=== PATIENT | female | born 1970 | race Caucasian/White ===

== ENCOUNTER → 2017-06-11 15:51 | Outpatient (CLI) | payer SELFPAY ==
[2017-06-11 17:53] LABS: Vitamin D,25 Hydroxy 59.4 ng/mL (29.95-100.01)
[2017-06-11 17:54] LABS: Free T3 2.8 pg/mL (2.18-3.98); T4 Free Direct 1.04 ng/dL (0.76-1.46); Thyroid Stim Hormone (TSH) 2.28 uIU/mL (0.358-3.74)
[2017-06-14 11:07] LABS: Thyroid Peroxidase AB 19 IU/mL (0-34)
== END ==
PROVIDERS: Family Provider Family Medicine; PCP Family Medicine; Visit Provider Family Medicine
DX: R53.83 Other fatigue (principal); E56.9 Vitamin deficiency, unspecified
CPT/HCPCS: 36415; 82306; 84439; 84443; 84481; 86376

== ENCOUNTER → 2017-06-26 09:45 | Outpatient (CLI) | payer SELFPAY ==
[2017-07-02 11:23] LABS: HPV APTIMA, High Risk Negative (Negative)
== END ==
PROVIDERS: Family Provider Family Medicine; PCP Family Medicine; Visit Provider Obstetrics & Gynecology
DX: Z12.4 Encounter for screening for malignant neoplasm of cervix (principal)
CPT/HCPCS: 88175; G0145

== ENCOUNTER → 2017-11-16 16:13 | Outpatient (CLI) | payer SELFPAY ==
[2017-11-16 17:54] LABS: Hematocrit 34.4 % (37-47); Hemoglobin 11.2 g/dl (12.0-15.0); Mean Corp Hgb Conc 32.6 g/gl (32-36); Mean Corpuscular Hgb 25.2 pg (27.0-32.0); Mean Corpuscular Volume 77.5 fL (81-99); Mean Platelet Vol. 10.8 fl (6.2-12.0); Platelet Count 304 K/mm3 (150-450); RBC Distribution Width CV 14.5 % (11.6-14.6); Red Blood Count 4.44 M/mm3 (4.2-5.4); White Blood Count 6.4 K/mm3 (4.4-11.0)
[2017-11-16 17:57] LABS: Scan Indicated on CBC? Y/N NO
[2017-11-16 18:08] LABS: Free T3 2.5 pg/mL (2.18-3.98); Iron 38 ug/dL (50-170); Iron Binding Capacity,Total 361 ug/dL (250-450); T4 Free Direct 0.97 ng/dL (0.76-1.46); Thyroid Stim Hormone (TSH) 1.99 uIU/mL (0.358-3.74)
[2017-11-17 08:39] LABS: Vitamin D,25 Hydroxy 47.2 ng/mL (29.95-100.01)
[2017-11-20 09:05] LABS: T3 Reverse 23.1 ng/dL (9.2-24.1)
== END ==
PROVIDERS: Family Provider Family Medicine; PCP Family Medicine; Visit Provider Family Medicine
DX: R53.83 Other fatigue (principal); R63.5 Abnormal weight gain
CPT/HCPCS: 36415; 82306; 83540; 83550; 84439; 84443; 84481; 84482; 85027

== ENCOUNTER → 2017-11-25 16:38 | Outpatient (CLI) | payer SELFPAY ==
[2017-11-25 18:03] LABS: Estradiol 133.3 pg/mL
[2017-11-26 08:31] LABS: Progesterone Level 13.37 ng/mL (See Comment)
[2017-11-30 14:07] LABS: Testosterone, % Free 2.71 % (0.50-2.80); Testosterone, Free 0.24 ng/dL (0.10-0.85); Testosterone, Total 9 ng/dL (8-48)
[2017-11-30 15:19] LABS: DHEA Sulfate 110.4 ug/dL (41.2-243.7)
== END ==
PROVIDERS: Family Provider Family Medicine; PCP Family Medicine
DX: R53.83 Other fatigue (principal); R63.5 Abnormal weight gain
CPT/HCPCS: 36415; 82627; 82670; 84144; 84402; 84403; 82626

== ENCOUNTER → 2018-01-03 07:11 | Outpatient (CLI) | payer SELFPAY ==
[2018-01-03 11:08] LABS: Cholesterol 214 mg/dL (200); High Density Lipoprotein 46 mg/dL; Triglycerides 126 mg/dL; Very Low Density Lipoprotein 25 mg/dL (5-40)
== END ==
PROVIDERS: Family Provider Family Medicine; PCP Family Medicine
DX: Z13.220 Encounter for screening for lipoid disorders (principal)
CPT/HCPCS: 36415; 80061

== ENCOUNTER → 2018-02-24 11:25 | Outpatient (CLI) | payer SELFPAY ==
[2017-06-25 10:37] VITALS: BMI 26.8
[2018-02-24 14:10] LABS: Absolute Lymphocyte Count 1.43 X10^3/ul (0.83-4.51); Absolute Neutrophil Count 3.6 X10^3/uL (2.0-7.7); Basophil# 0.03 X10^3/uL; Basophil% 0.5 % (0-1); Eosinophil# 0.08 X10^3/uL; Eosinophils% 1.4 % (0-5); Hematocrit 35.8 % (37-47); Hemoglobin 11.6 g/dl (12.0-15.0); Lymphocyte # 1.43 X10^3/ul (4.0); Lymphocyte % 24.7 % (19-41); Mean Corp Hgb Conc 32.4 g/gl (32-36); Mean Corpuscular Hgb 25.1 pg (27.0-32.0); Mean Corpuscular Volume 77.3 fL (81-99); Monocyte# 0.67 X10^3/uL; Monocyte% 11.6 % (0-10); Neutrophil # 3.58 X10^3/uL (2.7-7.7); Neutrophil % 61.6 % (47-70); Platelet Count 312 K/mm3 (150-450); RBC Distribution Width CV 14.9 % (11.6-14.6); RBC Distribution Width SD 41.1 fl (35.1-43.9); Red Blood Count 4.63 M/mm3 (4.2-5.4); White Blood Count 5.8 K/mm3 (4.4-11.0)
[2018-02-24 14:15] LABS: POSITIVE COUNT NO; POSITIVE DIFFERENTIAL NO; POSITIVE MORPHOLOGY NO
[2018-02-24 14:31] LABS: Free T3 2.9 pg/mL (2.18-3.98); Iron 188 ug/dL (50-170); Iron Binding Capacity,Total 403 ug/dL (250-450); PERCENT IRON SATURATION 46.7 % (15.0-55.0); T4 Free Direct 1.04 ng/dL (0.76-1.46); Thyroid Stim Hormone (TSH) 3.44 uIU/mL (0.358-3.74)
[2018-03-02 11:13] LABS: T3 Reverse 26.9 ng/dL (9.2-24.1)
== END ==
PROVIDERS: Family Provider Family Medicine; PCP Family Medicine
DX: D50.9 Iron deficiency anemia, unspecified (principal); R53.83 Other fatigue
CPT/HCPCS: 36415; 83540; 83550; 84439; 84443; 84481; 84482; 85025

== ENCOUNTER → 2018-06-10 15:16 | Outpatient (CLI) | payer SELFPAY ==
[2017-06-25 10:37] VITALS: BMI 26.8
[2018-06-20 13:05] LABS: Alternaria alternata <0.10 kU/L (Class 0); Aspergillus fumigatus <0.10 kU/L (Class 0); Bahia Grass <0.10 kU/L (Class 0); Bermuda Grass <0.10 kU/L (Class 0); Bluegrass, Kentucky <0.10 kU/L (Class 0); Cat Hair/Dander, Standard <0.10 kU/L (Class 0); Cedar, Mountain <0.10 kU/L (Class 0); Cladosporium herbarum <0.10 kU/L (Class 0); Cockroach, American <0.10 kU/L (Class 0); D farinae Mite <0.10 kU/L (Class 0); D pteronyssinus <0.10 kU/L (Class 0); Dog Epithelia <0.10 kU/L (Class 0); Elm, American White <0.10 kU/L (Class 0); Hazelnut Tree <0.10 kU/L (Class 0); Hickory, White <0.10 kU/L (Class 0); Johnson Grass <0.10 kU/L (Class 0); Maple/Box Elder <0.10 kU/L (Class 0); Mucor racemosus <0.10 kU/L (Class 0); Mugwort <0.10 kU/L (Class 0); Mulberry, White <0.10 kU/L (Class 0); Oak, White <0.10 kU/L (Class 0); Penicillium chrysogen <0.10 kU/L (Class 0); Pigweed, Rough <0.10 kU/L (Class 0); Plantain, English <0.10 kU/L (Class 0); Ragweed, Short/Common <0.10 kU/L (Class 0); Sheep Sorrel(Dock) <0.10 kU/L (Class 0); Stemphylium herbarum <0.10 kU/L (Class 0); Sweet Gum <0.10 kU/L (Class 0); Sycamore, American <0.10 kU/L (Class 0)
[2018-06-20 14:28] LABS: Nettle <0.10 kU/L (Class 0)
== END ==
PROVIDERS: Family Provider Family Medicine; PCP Family Medicine; Referring Provider Family Medicine; Visit Provider Family Medicine
DX: R06.7 Sneezing (principal)
CPT/HCPCS: 36415; 86003

== ENCOUNTER → 2018-07-25 13:53 | Outpatient (CLI) | payer SELFPAY ==
[2018-07-20 13:57] VITALS: BMI 26.8
--- NOTE | 2018-07-25 13:56 | BI_ITS ---
MAMMOGRAPHY - BILATERAL DIAGNOSTIC REASON FOR EXAM: Female, 47 years old. History of bilateral breast cysts. PERTINENT HISTORY: Non-contributory. TECHNIQUE: Digital bilateral breast ana (3D mammographic acquisition) in the CC and MLO projections. 2-D mediolateral oblique (MLO) and craniocaudad (CC) views of both breasts were obtained. CAD: Full Field Digital Mammography with Computer Added Detection was performed. COMPARISON: No comparison mammograms available at this time. If any prior films become available, an addendum to this report can be generated. FINDINGS: Breast Composition: The breasts are heterogeneously dense, which may obscure small masses. Small nodular densities are seen in both breasts. Correlation with ultrasound is recommended. No suspicious mass lesion is seen. No cluster microcalcifications present. No other significant abnormalities are identified. BI/DIAG MAMM W/CAD, BILAT IMPRESSION: Small well-defined nodular densities are seen in both breasts. Correlation with ultrasound is recommended. ASSESSMENT CATEGORY: BIRADS Category 0: Incomplete. Need additional imaging evaluation. A letter regarding these results will be sent to the patient by the facility within 30 days. Approximately 10% of breast cancers are not detected by mammography. A normal mammogram should not delay biopsy of a clinically suspicious abnormality. Electronically Signed: Saman Peters, at 15:55 EDT , Service support ,
--- NOTE | 2018-07-25 13:56 | US_ITS ---
STUDY: ULTRASOUND BREAST - RIGHT REASON FOR EXAM: Female, 47 years old. History of bilateral breast cysts. TECHNIQUE: Axial and longitudinal images of the RIGHT breast were performed with a high resolution ultrasound transducer. COMPARISON: Comparison is made with prior mammogram done earlier today. FINDINGS: RIGHT Breast: Multiple cysts are seen. The largest cyst measures 1 cm x 0.8 cm x 0.6 cm. This is at the 7:00 position of the breast at 6 cm from the nipple. IMPRESSION: Multiple small breast cysts. ASSESSMENT CATEGORY: BIRADS Category 2: Benign. A letter regarding these results will be sent to the patient by the facility within 30 days. Electronically Signed: Saman Peters, at 15:42 EDT , Service support , STUDY: ULTRASOUND BREAST - LEFT REASON FOR EXAM: Female, 47 years old. History of breast cysts. TECHNIQUE: Axial and longitudinal images of the LEFT breast were performed with a high resolution ultrasound transducer. COMPARISON: Comparison is made with prior mammogram done earlier today. FINDINGS: LEFT Breast: Multiple cysts are seen. The largest measures 1.3 cm x 1.3 cm x 0.7 cm. This is at the 3:00 position of the breast at 3 cm some the nipple. US/Breast Complete Bilateral IMPRESSION: Multiple breast cysts. ASSESSMENT CATEGORY: BIRADS Category 2: Benign. A letter regarding these results will be sent to the patient by the facility within 30 days. Electronically Signed: Saman Peters, at 15:43 EDT , Service support ,
== END ==
PROVIDERS: Family Provider Family Medicine; PCP Family Medicine; Referring Provider Nurse Practitioner Women's Health; Visit Provider Nurse Practitioner Women's Health
DX: N63.0 Unspecified lump in unspecified breast (principal)
CPT/HCPCS: 76641; 77066

== ENCOUNTER → 2018-12-16 10:19 | Outpatient (CLI) | payer SELFPAY ==
[2018-07-20 13:57] VITALS: BMI 26.8
[2018-12-16 12:43] LABS: Absolute Lymphocyte Count 1.18 X10^3/uL (0.83-4.51); Absolute Neutrophil Count 3.7 X10^3/uL (2.0-7.7); Basophil# 0.03 X10^3/uL; Basophil% 0.5 % (0-1); Eosinophil# 0.08 X10^3/uL; Eosinophils% 1.5 % (0-5); Hemoglobin 11.4 g/dL (12.0-15.0); Lymphocyte # 1.18 X10^3/ul (4.0); Lymphocyte % 21.5 % (19-41); Mean Corp Hgb Conc 30.8 g/dL (32-36); Mean Corpuscular Volume 81.1 fL (81-99); Mean Platelet Vol. 10.7 fl (6.2-12.0); Monocyte# 0.47 X10^3/uL; Monocyte% 8.6 % (0-10); NRBC Flagged by Analyzer 0 % (0-5); Neutrophil # 3.71 X10^3/uL (2.7-7.7); Neutrophil % 67.7 % (47-70); Platelet Count 290 K/mm3 (150-450); Red Blood Count 4.56 M/mm3 (4.2-5.4); White Blood Count 5.5 K/mm3 (4.4-11.0)
[2018-12-16 13:01] LABS: Progesterone Level 2.67 ng/mL (See Comment); Vitamin D,25 Hydroxy 41.8 ng/mL (29.95-100.01)
[2018-12-16 13:14] LABS: Free T3 2.7 pg/mL (2.18-3.98); Iron 36 ug/dL (50-170); Iron Binding Capacity,Total 372 ug/dL (250-450); T4 Free Direct 0.94 ng/dL (0.76-1.46); Thyroid Stim Hormone (TSH) 2.49 uIU/mL (0.358-3.74)
[2018-12-21 13:06] LABS: T3 Reverse 22.6 ng/dL (9.2-24.1)
== END ==
PROVIDERS: Family Provider Family Medicine; PCP Family Medicine
DX: D64.9 Anemia, unspecified (principal); R53.83 Other fatigue; E34.9 Endocrine disorder, unspecified; Z13.820 Encounter for screening for osteoporosis
CPT/HCPCS: 36415; 82306; 83540; 83550; 84144; 84439; 84443; 84481; 84482; 85025

== ENCOUNTER → 2019-09-04 15:15 | Outpatient (CLI) | payer SELFPAY ==
[2018-07-20 13:57] VITALS: BMI 26.8
[2019-08-25 13:46] VITALS: BMI 26.8
--- NOTE | 2019-09-04 15:16 | BI_ITS ---
MAMMOGRAPHY - BILATERAL SCREENING 3-D TOMOSYNTHESIS REASON FOR EXAM: Female, 48 years old. Routine screening PERTINENT HISTORY: NO FAM HX -- GAINED WEIGHT SINCE LAST YEAR -- HX CYSTS. TECHNIQUE: 2-D mammograms and 3-D Tomosynthesis of the breast (s) were performed. CAD was performed. COMPARISON: 07/25/2018 FINDINGS: The breast composition is heterogeneously dense that can obscure small breast masses. Scattered benign calcifications are seen. No dense spiculated masses or suspicious microcalcifications are identified. No architectural distortion is identified. There is no skin thickening or retraction. Stable well-defined nodules in both breasts, previous ultrasounds showing to be simple cysts. No new suspicious findings There has been no significant change since the prior study. BI/SCREEN MAMM (CAD) W/JS BILAT IMPRESSION: No mammographic signs of malignancy. Routine yearly mammograms recommended. ASSESSMENT CATEGORY: BIRADS Category 2: Benign. A letter regarding these results will be sent to the patient by the facility within 30 days. FOLLOW UP RECOMMENDATION: Yearly follow up mammogram recommended. (A) Approximately 10% of breast cancers are not detected by mammography. A normal mammogram should not delay biopsy of a clinically suspicious abnormality. Electronically Signed: Yobany Cervantes MD at 8:12 EDT , Service support ,
== END ==
PROVIDERS: PCP Family Medicine; Referring Provider Obstetrics & Gynecology; Visit Provider Obstetrics & Gynecology
DX: Z12.31 Encounter for screening mammogram for malignant neoplasm of breast (principal)
CPT/HCPCS: 77063; 77067

== ENCOUNTER → 2020-01-23 08:59 | Outpatient (CLI) | payer SELFPAY ==
[2019-08-25 13:46] VITALS: BMI 26.8
[2020-01-23 09:18] LABS: Absolute Lymphocyte Count 1.21 X10^3/uL (0.83-4.51); Absolute Neutrophil Count 3.5 X10^3/uL (2.0-7.7); Basophil# 0.02 X10^3/uL; Basophil% 0.4 % (0-1); Eosinophils% 1.9 % (0-5); Hematocrit 36.8 % (37-47); Hemoglobin 11.6 g/dL (12.0-15.0); Lymphocyte # 1.21 X10^3/ul (4.0); Lymphocyte % 22.9 % (19-41); Mean Corp Hgb Conc 31.5 g/dL (32-36); Mean Corpuscular Hgb 25.6 pg (27.0-32.0); Mean Corpuscular Volume 81.2 fL (81-99); Mean Platelet Vol. 9.6 fl (6.2-12.0); Monocyte# 0.45 X10^3/uL; Monocyte% 8.5 % (0-10); NRBC Flagged by Analyzer 0 % (0-5); Neutrophil # 3.49 X10^3/uL (2.7-7.7); Neutrophil % 66.1 % (47-70); Platelet Count 309 K/mm3 (150-450); RBC Distribution Width CV 13.8 % (11.6-14.6); RBC Distribution Width SD 39.8 fl (35.1-43.9); Red Blood Count 4.53 M/mm3 (4.2-5.4); White Blood Count 5.3 K/mm3 (4.4-11.0)
[2020-01-23 09:42] LABS: ALB/GLOB Ratio 0.9 RATIO (0.9-2.4); AST(SGOT) 17 U/L (15-37); Alanine Aminotransfer ALT/SGPT 27 U/L (13-56); Albumin, Serum 3.5 g/dL (3.2-5.0); Alkaline Phosphatase 80 U/L (45-117); Anion Gap 5 (5-15); BUN 10 mg/dL (7-18); BUN/Creat Ratio 10.8 RATIO (10-20); Calcium,Total 9.2 mg/dL (8.5-10.1); Chloride 106 mmol/L (98-107); Creatinine, Serum 0.92 mg/dL (0.55-1.02); EST Glomerular Filtration Rate 69 mL/min (>60); Est Glom Filt Rate - Afr Amer 83 mL/min (>60); Glucose 97 mg/dL (74-106); Potassium 3.6 mmol/L (3.5-5.1); Protein, Total 7.5 g/dL (6.4-8.2); Sodium Level 139 mmol/L (136-145); Thyroid Stim Hormone (TSH) 2.86 uIU/mL (0.358-3.74)
[2020-01-23 10:05] LABS: Vitamin D,25 Hydroxy 39.4 ng/mL
== END ==
PROVIDERS: PCP Family Medicine; Referring Provider Obstetrics & Gynecology; Visit Provider Obstetrics & Gynecology
DX: Z13.21 Encounter for screening for nutritional disorder (principal); Z01.419 Encounter for gynecological examination (general) (routine) without abnormal findings; Z13.29 Encounter for screening for other suspected endocrine disorder
CPT/HCPCS: 36415; 80053; 82306; 84443; 85025

== ENCOUNTER → 2020-05-08 08:45 | Outpatient (CLI) | payer SELFPAY ==
[2020-05-01 08:58] VITALS: BMI 25.4
--- NOTE | 2020-05-08 09:04 | BI_ITS ---
MAMMOGRAPHY - BILATERAL DIAGNOSTIC REASON FOR EXAM: Female, 49 years old. Right breast lump. Bruising. PERTINENT HISTORY: Non-contributory. TECHNIQUE: Digital bilateral breast ana (3D mammographic acquisition) in the CC and MLO projections. 2-D mediolateral oblique (MLO) and craniocaudad (CC) views of both breasts were obtained. CAD: Full Field Digital Mammography with Computer Added Detection was performed. COMPARISON: Comparison is made with prior study dated 09/04/2019 and 07/25/2018. FINDINGS: Breast Composition: The breasts are heterogeneously dense, which may obscure small masses. There is a 2.1 cm x 1.8 cm well-defined nodular density in the deep slightly lateral aspect of the left breast. A similar appearing nodule is seen in the same region measuring 1.4 cm x 1.3 cm. Correlation with ultrasound is recommended. No other significant abnormalities are identified. There has been no significant change since the prior study. BI/DIAG MAMM W/CAD, BILAT IMPRESSION: 2 well-defined nodules are seen in the upper outer quadrant of the left breast as described. Correlation with ultrasound is recommended. With the patient''s history of lump and bruising in the right breast, ultrasound of the right breast is recommended as well. ASSESSMENT CATEGORY: BIRADS Category 0: Incomplete. Need additional imaging evaluation. A letter regarding these results will be sent to the patient by the facility within 30 days. Approximately 10% of breast cancers are not detected by mammography. A normal mammogram should not delay biopsy of a clinically suspicious abnormality. Electronically Signed: Saman Peters MD at 12:02 EST , Service support ,
[2020-05-08 09:05] LABS: Absolute Lymphocyte Count 1.05 X10^3/uL (0.83-4.51); Absolute Neutrophil Count 4.3 X10^3/uL (2.0-7.7); Basophil# 0.03 X10^3/uL; Basophil% 0.5 % (0-1); Eosinophil# 0.05 X10^3/uL; Eosinophils% 0.9 % (0-5); Hematocrit 36.5 % (37-47); Hemoglobin 11.8 g/dL (12.0-15.0); Lymphocyte # 1.05 X10^3/ul (4.0); Lymphocyte % 17.9 % (19-41); Mean Corp Hgb Conc 32.3 g/dL (32-36); Mean Corpuscular Volume 80.4 fL (81-99); Monocyte# 0.47 X10^3/uL; NRBC Flagged by Analyzer 0 % (0-5); Neutrophil # 4.25 X10^3/uL (2.7-7.7); Neutrophil % 72.4 % (47-70); Platelet Count 239 K/mm3 (150-450); RBC Distribution Width CV 14.2 % (11.6-14.6); RBC Distribution Width SD 41.1 fl (35.1-43.9); Red Blood Count 4.54 M/mm3 (4.2-5.4); White Blood Count 5.9 K/mm3 (4.4-11.0)
[2020-05-08 09:39] LABS: Free T3 2.7 pg/mL (2.18-3.98); T4 Free Direct 1.08 ng/dL (0.76-1.46); Thyroid Stim Hormone (TSH) 2.29 uIU/mL (0.358-3.74)
--- NOTE | 2020-05-08 10:11 | US_ITS ---
STUDY: ULTRASOUND BREAST - RIGHT REASON FOR EXAM: Female, 49 years old. Abnormal screening mammogram. TECHNIQUE: Axial and longitudinal images of the RIGHT breast were performed with a high resolution ultrasound transducer. # OF IMAGES: 59 COMPARISON: Comparison is made with prior mammogram done earlier in day. FINDINGS: RIGHT Breast: 3 cysts are seen at the 2 o''clock and 3 o''clock position of the left breast. The larger measures 1.5 cm x 2.1 cm x 1 cm. This corresponds to the mammographic findings. IMPRESSION: 3 cysts are seen in the upper outer quadrant of the right breast. ASSESSMENT CATEGORY: BIRADS Category 2: Benign. A letter regarding these results will be sent to the patient by the facility within 30 days. Electronically Signed: Saman Peters MD at 12:03 EST , Service support , STUDY: ULTRASOUND BREAST - LEFT REASON FOR EXAM: Female, 49 years old. Palpable lump in the right breast. TECHNIQUE: Axial and longitudinal images of the LEFT breast were performed with a high resolution ultrasound transducer. # OF IMAGES: 59 COMPARISON: Comparison is made with prior mammogram done earlier today. FINDINGS: LEFT Breast: The area of the bruising was examined by ultrasound in the upper outer quadrant. No sonographic abnormality is seen.. US/Breast Limited Unilateral IMPRESSION: No sonographic abnormality is seen. ASSESSMENT CATEGORY: BIRADS Category 1: Negative. A letter regarding these results will be sent to the patient by the facility within 30 days. Electronically Signed: Saman Peters MD at 12:04 EST , Service support ,
[2020-05-08 16:59] LABS: Xtra Tube EP Lab EXTRA TUBE
[2020-05-12 07:58] LABS: T3 Reverse 24.3 ng/dL (9.2-24.1)
== END ==
PROVIDERS: PCP Family Medicine; Referring Provider Obstetrics & Gynecology; Visit Provider Obstetrics & Gynecology
DX: R20.8 Other disturbances of skin sensation (principal); N63.10 Unspecified lump in the right breast, unspecified quadrant
CPT/HCPCS: 36415; 76642; 77062; 77066; 84439; 84443; 84481; 84482; 85025; G0279

== ENCOUNTER → 2021-02-19 12:57 | Outpatient (CLI) | payer SELFPAY ==
[2021-02-19 15:28] LABS: Absolute Lymphocyte Count 1.54 X10^3/uL (0.83-4.51); Absolute Neutrophil Count 4.5 X10^3/uL (2.0-7.7); Basophil# 0.03 X10^3/uL; Basophil% 0.4 % (0-1); Eosinophil# 0.12 X10^3/uL; Eosinophils% 1.7 % (0-5); Hematocrit 37.7 % (37-47); Hemoglobin 12.2 g/dL (12.0-15.0); Lymphocyte # 1.54 X10^3/ul (0.83-4.51); Lymphocyte % 22.4 % (19-41); Mean Corp Hgb Conc 32.4 g/dL (32-36); Mean Corpuscular Hgb 26.1 pg (27.0-32.0); Mean Corpuscular Volume 80.7 fL (81-99); Mean Platelet Vol. 10.6 fl (6.2-12.0); Monocyte# 0.69 X10^3/uL; NRBC Flagged by Analyzer 0 % (0-5); Neutrophil # 4.48 X10^3/uL (2.7-7.7); Neutrophil % 65.2 % (47-70); Platelet Count 339 K/mm3 (150-450); RBC Distribution Width CV 13.7 % (11.6-14.6); RBC Distribution Width SD 39.8 fl (35.1-43.9); Red Blood Count 4.67 M/mm3 (4.2-5.4); White Blood Count 6.9 K/mm3 (4.4-11.0)
[2021-02-19 15:44] LABS: Vitamin D,25 Hydroxy 56.7 ng/mL
[2021-02-19 16:07] LABS: ALB/GLOB Ratio 0.9 RATIO (0.9-2.4); AST(SGOT) 17 U/L (15-37); Alanine Aminotransfer ALT/SGPT 27 U/L (13-56); Albumin, Serum 3.7 g/dL (3.2-5.0); Alkaline Phosphatase 73 U/L (45-117); Anion Gap 9 (5-15); BUN 13 mg/dL (7-18); BUN/Creat Ratio 17.8 RATIO (10-20); Calcium,Total 9.4 mg/dL (8.5-10.1); Chloride 101 mmol/L (98-107); Creatinine, Serum 0.73 mg/dL (0.55-1.02); EST Glomerular Filtration Rate 89 mL/min (>60); Est Glom Filt Rate - Afr Amer 108 mL/min (>60); Free T3 2.7 pg/mL (2.18-3.98); Globulin 4.1 g/dL (2.2-4.2); Glucose 82 mg/dL (74-106); Potassium 3.8 mmol/L (3.5-5.1); Protein, Total 7.8 g/dL (6.4-8.2); Sodium Level 138 mmol/L (136-145); T4 Free Direct 0.97 ng/dL (0.76-1.46); Thyroid Stim Hormone (TSH) 3.23 uIU/mL (0.358-3.74)
[2021-02-26 09:41] LABS: T3 Reverse 22.2 ng/dL (9.2-24.1)
== END ==
PROVIDERS: PCP Family Medicine
DX: R53.83 Other fatigue (principal); E55.9 Vitamin D deficiency, unspecified
CPT/HCPCS: 36415; 80053; 82306; 84439; 84443; 84481; 84482; 85025

== ENCOUNTER → 2021-08-27 | Outpatient (CLI) | payer SELFPAY ==
[2021-08-27 09:58] LABS: Absolute Lymphocyte Count 1.21 X10^3/uL (0.83-4.51); Absolute Neutrophil Count 3.3 X10^3/uL (2.0-7.7); Basophil# 0.03 X10^3/uL; Basophil% 0.6 % (0-1); Eosinophil# 0.13 X10^3/uL; Eosinophils% 2.5 % (0-5); Hematocrit 37.5 % (37-47); Hemoglobin 11.8 g/dL (12.0-15.0); Lymphocyte # 1.21 X10^3/ul (0.83-4.51); Lymphocyte % 23.7 % (19-41); Mean Corp Hgb Conc 31.5 g/dL (32-36); Mean Corpuscular Hgb 25.6 pg (27.0-32.0); Mean Corpuscular Volume 81.3 fL (81-99); Mean Platelet Vol. 10.7 fl (6.2-12.0); Monocyte# 0.42 X10^3/uL; Monocyte% 8.2 % (0-10); NRBC Flagged by Analyzer 0 % (0-5); Neutrophil # 3.31 X10^3/uL (2.7-7.7); Neutrophil % 64.8 % (47-70); Platelet Count 287 K/mm3 (150-450); RBC Distribution Width CV 13.6 % (11.6-14.6); RBC Distribution Width SD 40.1 fl (35.1-43.9); Red Blood Count 4.61 M/mm3 (4.2-5.4); White Blood Count 5.1 K/mm3 (4.4-11.0)
[2021-08-27 10:26] LABS: Hemoglobin A1c 5.4 % (3.8-5.6)
[2021-08-27 10:34] LABS: Vitamin D,25 Hydroxy 47.4 ng/mL
[2021-08-27 10:46] LABS: AST(SGOT) 18 U/L (15-37); Alanine Aminotransfer ALT/SGPT 22 U/L (13-56); Albumin, Serum 3.5 g/dL (3.2-5.0); Alkaline Phosphatase 59 U/L (45-117); Anion Gap 6 (5-15); BUN 11 mg/dL (7-18); Calcium,Total 8.8 mg/dL (8.5-10.1); Chloride 104 mmol/L (98-107); Cholesterol 215 mg/dL (200); Creatinine, Serum 0.84 mg/dL (0.55-1.02); EST Glomerular Filtration Rate 75 mL/min (>60); Est Glom Filt Rate - Afr Amer 91 mL/min (>60); Free T3 2.8 pg/mL (2.18-3.98); Globulin 3.5 g/dL (2.2-4.2); Glucose 96 mg/dL (74-106); High Density Lipoprotein 50 mg/dL; Iron 37 ug/dL (50-170); Iron Binding Capacity,Total 375 ug/dL (250-450); PERCENT IRON SATURATION 9.9 % (15.0-55.0); Potassium 3.9 mmol/L (3.5-5.1); Sodium Level 138 mmol/L (136-145); T4 Free Direct 0.96 ng/dL (0.76-1.46); Thyroid Stim Hormone (TSH) 2.93 uIU/mL (0.358-3.74); Triglycerides 168 mg/dL; Very Low Density Lipoprotein 34 mg/dL (5-40)
[2021-09-04 14:31] LABS: T3 Reverse 21.7 ng/dL (9.2-24.1)
== END | disposition home or self-care (01) ==
PROVIDERS: PCP Family Medicine; Referring Provider Registered Nurse; Visit Provider Registered Nurse
DX: Z13.1 Encounter for screening for diabetes mellitus (principal); D64.9 Anemia, unspecified; E55.9 Vitamin D deficiency, unspecified; R53.83 Other fatigue
CPT/HCPCS: 36415; 80053; 80061; 82306; 83036; 83540; 83550; 84439; 84443; 84481; 84482; 85025

== ENCOUNTER → 2021-08-29 | Outpatient (CLI) | payer SELFPAY ==
[2021-09-04 13:56] LABS: HPV APTIMA, High Risk Negative (Negative)
== END | disposition home or self-care (01) ==
LOC: LABSPEC 09:05
PROVIDERS: PCP Family Medicine; Visit Provider Obstetrics & Gynecology
DX: Z12.4 Encounter for screening for malignant neoplasm of cervix (principal)
CPT/HCPCS: 87624; 88175; G0145

== ENCOUNTER → 2021-09-10 | Outpatient (CLI) | payer SELFPAY ==
--- NOTE | 2021-09-10 10:42 | BI_ITS ---
MAMMOGRAPHY - BILATERAL SCREENING REASON FOR EXAM: Female, 50 years old. Routine annual screening examination. PERTINENT HISTORY: Non-contributory. TECHNIQUE: Digital bilateral breast js (3D mammographic acquisition) in the CC and MLO projections. 2-D mediolateral oblique (MLO) and craniocaudad (CC) views of both breasts were obtained. CAD: Full Field Digital Mammography with Computer Added Detection was performed. COMPARISON: Comparison is made with prior study of 05/08/2020 and 09/04/2019. FINDINGS: Breast Composition: The breasts are heterogeneously dense, which may obscure small masses. Once again, 2 adjacent well-defined nodular densities are seen in the slightly lateral aspect of the left breast. These were demonstrated to be cysts on prior sonogram. These have decreased in size. No other significant abnormalities are identified. There has been no significant change since the prior study. BI/SCRN MAMM (CAD)W/JS BILAT IMPRESSION: Stable bilateral screening mammogram. Yearly follow-up mammogram recommended. (A) ASSESSMENT CATEGORY: BIRADS Category 2: Benign. A letter regarding these results will be sent to the patient by the facility within 30 days. Approximately 10% of breast cancers are not detected by mammography. A normal mammogram should not delay biopsy of a clinically suspicious abnormality. [id number] Electronically Signed: Saman Peters MD at 11:16 EDT ,
== END | disposition home or self-care (01) ==
LOC: OPBI 10:39
PROVIDERS: PCP Family Medicine; Visit Provider Obstetrics & Gynecology
DX: Z12.31 Encounter for screening mammogram for malignant neoplasm of breast (principal)
CPT/HCPCS: 77063; 77067

== ENCOUNTER → 2022-01-08 | Outpatient (CLI) | payer SELFPAY ==
[2022-01-08 15:32] LABS: Absolute Lymphocyte Count 1.25 X10^3/uL (0.83-4.51); Absolute Neutrophil Count 3.7 X10^3/uL (2.0-7.7); Basophil# 0.03 X10^3/uL; Basophil% 0.5 % (0-1); Eosinophil# 0.12 X10^3/uL; Eosinophils% 2.1 % (0-5); Hematocrit 38.6 % (37-47); Hemoglobin 12.8 g/dL (12.0-15.0); Lymphocyte # 1.25 X10^3/ul (0.83-4.51); Mean Corp Hgb Conc 33.2 g/dL (32-36); Mean Corpuscular Hgb 26.8 pg (27.0-32.0); Mean Corpuscular Volume 80.9 fL (81-99); Mean Platelet Vol. 10.4 fl (6.2-12.0); Monocyte# 0.54 X10^3/uL; Monocyte% 9.5 % (0-10); NRBC Flagged by Analyzer 0 % (0-5); Neutrophil # 3.73 X10^3/uL (2.7-7.7); Neutrophil % 65.5 % (47-70); Platelet Count 314 K/mm3 (150-450); RBC Distribution Width CV 13.6 % (11.6-14.6); RBC Distribution Width SD 40.2 fl (35.1-43.9); Red Blood Count 4.77 M/mm3 (4.2-5.4); White Blood Count 5.7 K/mm3 (4.4-11.0)
[2022-01-08 15:37] LABS: Iron 90 ug/dL (50-170); Iron Binding Capacity,Total 369 ug/dL (250-450); PERCENT IRON SATURATION 24.4 % (15.0-55.0)
== END | disposition home or self-care (01) ==
LOC: MTLAB 11:32
PROVIDERS: PCP Family Medicine; Referring Provider Registered Nurse; Visit Provider Registered Nurse
DX: R79.9 Abnormal finding of blood chemistry, unspecified (principal); E61.1 Iron deficiency
CPT/HCPCS: 36415; 83540; 83550; 85025

== ENCOUNTER → 2022-05-05 | Outpatient (CLI) | payer SELFPAY ==
[2022-05-05 17:33] LABS: Absolute Lymphocyte Count 1.43 X10^3/uL (0.83-4.51); Absolute Neutrophil Count 3.6 X10^3/uL (2.0-7.7); Basophil# 0.03 X10^3/uL; Basophil% 0.5 % (0-1); Eosinophil# 0.15 X10^3/uL; Eosinophils% 2.5 % (0-5); Hematocrit 38.7 % (37-47); Hemoglobin 12.4 g/dL (12.0-15.0); Lymphocyte # 1.43 X10^3/ul (0.83-4.51); Lymphocyte % 24.2 % (19-41); Mean Corpuscular Volume 84.3 fL (81-99); Mean Platelet Vol. 10.4 fl (6.2-12.0); Monocyte# 0.66 X10^3/uL; Monocyte% 11.2 % (0-10); NRBC Flagged by Analyzer 0 % (0-5); Neutrophil # 3.62 X10^3/uL (2.7-7.7); Neutrophil % 61.3 % (47-70); Platelet Count 312 K/mm3 (150-450); RBC Distribution Width CV 13.4 % (11.6-14.6); RBC Distribution Width SD 41.3 fl (35.1-43.9); Red Blood Count 4.59 M/mm3 (4.2-5.4); White Blood Count 5.9 K/mm3 (4.4-11.0)
[2022-05-05 18:05] LABS: Iron 40 ug/dL (50-170); Iron Binding Capacity,Total 367 ug/dL (250-450); PERCENT IRON SATURATION 10.9 % (15.0-55.0)
== END | disposition home or self-care (01) ==
LOC: MTLAB 16:17
PROVIDERS: PCP Family Medicine; Referring Provider Registered Nurse; Visit Provider Registered Nurse
DX: D50.9 Iron deficiency anemia, unspecified (principal); R53.83 Other fatigue
CPT/HCPCS: 36415; 83540; 83550; 85025

== ENCOUNTER → 2022-09-23 | Outpatient (CLI) | payer SELFPAY ==
--- NOTE | 2022-09-23 12:10 | BI_ITS ---
MAMMOGRAPHY - BILATERAL SCREENING REASON FOR EXAM: Female, 51 years old. Routine annual screening examination. PERTINENT HISTORY: Non-contributory. History of prior left breast cyst aspiration. TECHNIQUE: Digital bilateral breast js (3D mammographic acquisition) in the CC and MLO projections. 2-D mediolateral oblique (MLO) and craniocaudad (CC) views of both breasts were obtained. CAD: Full Field Digital Mammography with Computer Added Detection was performed. COMPARISON: Comparison is made with prior study dated September 10, 2021 and May 08, 2020. FINDINGS: Breast Composition: The breasts are heterogeneously dense, which may obscure small masses. There is an 8.6 mm x 6.5 mm well-defined nodule in the deep upper outer aspect of the left breast. This was demonstrated to be a cyst on prior sonogram. No other significant abnormalities are identified. There has been no significant change since the prior study. BI/SCRN MAMM (CAD)W/JS BILAT IMPRESSION: Stable bilateral screening mammogram. Yearly follow-up mammogram recommended. (A) ASSESSMENT CATEGORY: BIRADS Category 2: Benign. A letter regarding these results will be sent to the patient by the facility within 30 days. Approximately 10% of breast cancers are not detected by mammography. A normal mammogram should not delay biopsy of a clinically suspicious abnormality. [id number] Electronically Signed: Saman Peters MD at 14:34 EDT ,
== END | disposition home or self-care (01) ==
PROVIDERS: PCP Family Medicine; Referring Provider Obstetrics & Gynecology; Visit Provider Obstetrics & Gynecology
DX: Z12.31 Encounter for screening mammogram for malignant neoplasm of breast (principal)
CPT/HCPCS: 77063; 77067

== ENCOUNTER → 2023-01-23 | Outpatient (CLI) | payer SELFPAY ==
[2023-01-23 08:58] LABS: Absolute Lymphocyte Count 1.76 X10^3/uL (0.83-4.51); Basophil# 0.06 X10^3/uL; Basophil% 1.1 % (0-1); Eosinophil# 0.24 X10^3/uL; Eosinophils% 4.3 % (0-5); Hematocrit 42.1 % (37-47); Hemoglobin 13.3 g/dL (12.0-15.0); Lymphocyte # 1.76 X10^3/ul (0.83-4.51); Lymphocyte % 31.5 % (19-41); Mean Corp Hgb Conc 31.6 g/dL (32-36); Mean Corpuscular Hgb 26.6 pg (27.0-32.0); Mean Corpuscular Volume 84.2 fL (81-99); Mean Platelet Vol. 10.3 fl (6.2-12.0); Monocyte# 0.53 X10^3/uL; Monocyte% 9.5 % (0-10); NRBC Flagged by Analyzer 0 % (0-5); Neutrophil # 2.97 X10^3/uL (2.7-7.7); Neutrophil % 53.2 % (47-70); Platelet Count 262 K/mm3 (150-450); RBC Distribution Width CV 12.6 % (11.6-14.6); RBC Distribution Width SD 38.6 fl (35.1-43.9); White Blood Count 5.6 K/mm3 (4.4-11.0)
[2023-01-23 09:46] LABS: AST(SGOT) 16 U/L (15-37); Alanine Aminotransfer ALT/SGPT 20 U/L (13-56); Albumin, Serum 3.7 g/dL (3.2-5.0); Alkaline Phosphatase 81 U/L (45-117); Anion Gap 3 (5-15); BUN 14 mg/dL (7-18); BUN/Creat Ratio 14.5 RATIO (10-20); Calcium,Total 8.9 mg/dL (8.5-10.1); Chloride 107 mmol/L (98-107); Cholesterol 238 mg/dL (200); Creatinine, Serum 0.97 mg/dL (0.55-1.02); EST Glomerular Filtration Rate 64 mL/min (>60); Est Glom Filt Rate - Afr Amer 77 mL/min (>60); Free T3 2.6 pg/mL (2.18-3.98); Globulin 3.8 g/dL (2.2-4.2); Glucose 103 mg/dL (74-106); High Density Lipoprotein 61 mg/dL; Iron 68 ug/dL (50-170); Iron Binding Capacity,Total 344 ug/dL (250-450); PERCENT IRON SATURATION 19.8 % (15.0-55.0); Potassium 3.9 mmol/L (3.5-5.1); Protein, Total 7.5 g/dL (6.4-8.2); Sodium Level 139 mmol/L (136-145); T4 Free Direct 0.95 ng/dL (0.76-1.46); Thyroid Stim Hormone (TSH) 3.52 uIU/mL (0.358-3.74); Triglycerides 120 mg/dL; Very Low Density Lipoprotein 24 mg/dL (5-40)
[2023-01-23 10:49] LABS: Hemoglobin A1c 5.3 % (3.8-5.6)
[2023-01-25 10:05] LABS: Vitamin D,25 Hydroxy 51.2 ng/mL
[2023-01-25 13:07] LABS: ANTINUCLEAR ANTIBODIES DIRECT Negative (Negative)
[2023-01-28 19:07] LABS: T3 Reverse 16.2 ng/dL (9.2-24.1); Thyroid Peroxidase AB 30 IU/mL (0-34); Transferrin 263 mg/dL (192-364)
== END | disposition home or self-care (01) ==
LOC: LAB 08:22
PROVIDERS: PCP Family Medicine; Visit Provider Registered Nurse
DX: R53.83 Other fatigue (principal); D50.9 Iron deficiency anemia, unspecified; E55.9 Vitamin D deficiency, unspecified; M25.50 Pain in unspecified joint; Z13.220 Encounter for screening for lipoid disorders; Z13.1 Encounter for screening for diabetes mellitus
CPT/HCPCS: 36415; 80053; 80061; 82306; 83036; 83540; 83550; 84439; 84443; 84466; 84481; 84482; 85025; 86038; 86225; 86235; 86376

== ENCOUNTER → 2023-04-05 | Outpatient (CLI) | payer SELFPAY ==
--- OUTSIDE RECORDS SUMMARY | 2023-04-05 13:44 | XMS RPT_ITS | CCD ---
Author Name Unknown Address [facility] [place] [address] Organization [facility] Care Team Providers Care Master Glazier Name Role Phone DAVID Barajas RN, Farzaneh Wynn Unavailable Unavailabl e Chastity LINO, Cynthia Obregon Unavailable Barber SPARKS, Delia Burns Unavailable [phone] Chastity LINO, Cynthia Obregon Unavailable [phone] Allergies Allergy Classification Reported Allergen(s) Allergy Type Date of Onset Reaction(s) Facility (5 sources) Latex; Translations: [LATEX] allergy to substance 07-07-2016 [facility] Work Phone: (5 sources) meperidine drug allergy 07-07-2016 [facility] Work Phone: Medications Completed/Discontinued Medications Medication Drug Class(es) Dates Sig (Normalized) Sig (Original) acetylcysteine 600 mg oral capsule (4 sources) Antidote, Mucolytic, Antidote for Acetaminophen Overdose Start: 11-12-2016 S-GOKWAL-R-CYSTEINE 600 MG CAPS ACETYLCYSTEINE [id number] Cynthia Haywood NP calcium (5 sources) Phosphate Binder, Calcium CALCIUM 250 MG CAPS CALCIUM 78953504490 Delia Blandon MD cholecalciferol (5 sources) Vitamin D VITAMIN D (CHOLECALCIFEROL) TABS CHOLECALCIFEROL TABS [id number] Delia Blandon MD fish oil (4 sources) FISH OIL 1000 MG CAPS OMEGA-3 FATTY ACIDS 57083271198 Delia Blandon MD magnesium gluconate (5 sources) MAGNESIUM 27 TAB S MAGNESIUM GLUCONATE TABS 56408843454 Delia Blandon MD MULTIPLE VITAMINS-MINERALS (4 sources) MULTIVITAMIN ANITRA LT TABS MULTIPLE VITAMINS-MINERALS [id number] Delia Blandon MD MULTIPLE VITAMINS-MINERALS (1 source) MULTIVITAMIN ANITRA LT TABS MULTIPLE VITAMINS-MINERALS 08986242582 Delia Blandon MD niacin 500 mg oral tablet (5 sources) Nicotinic Acid NIACIN 500 MG TA NIACIN 45735310490 Delia Blandon MD OMEGA-3 FATTY ACIDS (1 source) FISH OIL 1000 MG CAPS OMEGA-3 FATTY ACIDS 24980644408 Delia Blandon MD SELENIUM (4 sources) SELENIUM 200 MCG TABS SELENIUM 64586172105 Delia Blandon MD SELENIUM (1 source) SELENIUM 200 MCG TABS SELENIUM 79285252378 Delia Blandon MD vitamin B 12 (4 sources) Vitamin B12 Start: 11-12-2016 B-12 2500 MCG TABS CYANOCOBALAMIN [id number] Cynthia Haywood NP Problems Problem Classification Problem Date Documented Da te Episodic/Chronic Abdominal pain (9 sources) Pain in pelvis; Translations: [Left lower quadrant pain] Onset: 07-07-2016 11-12-2016 Episodic Gastrointestinal hemorrhage (5 sources) Hematochezia; Translations: [Hemorrhage of anus and rectum] Onset: 07-07-2016 07-08-2016 Episodic Other female genital disorders (2 sources) H/O gynecological disorder; Translations: [Personal history of other diseases of the female genital tract] Onset: 11-30-2016 11-30-2016 Episodic Results Test Name Value Interpretation Reference Range Facil ity Vital Signs Date Time Vital Sign Value Performing Clinician Facility 11-12-2016 12:57-0400 BMI (Body Mass Index) 23.58 kg/m2 Cynthia Haywood NP [facility] 11-12-2016 12:57-0400 Body Temperature 98.1 [degF] Cynthia Haywood NP [facility] 11-12-2016 12:57-0400 BP Diastolic 64 mm[Hg] Cynthia Haywood NP [facility] 11-12-2016 12:57-0400 BP Systolic 103 mm[Hg] Cynthia Haywood NP [facility] 11-12-2016 12:57-0400 Height 162.56 cm Cynthia Haywood NP [facility] 11-12-2016 12:57-0400 Pulse (Heart Rate) 78 /min Cynthia Haywood [employer] [facility] 11-12-2016 12:57-0400 Respiratory Rate 16 /min Cynthia Haywood [employer] [facility] 11-12-2016 12:57-0400 Weight 62.32 kg Cynthia Haywood [employer] [facility] 07-07-2016 14:58-0400 BMI (Body Mass Index) 22.79 kg/m2 Delia Blandon MD [facility] Work Phone: 07-07-2016 14:58-0400 Body Temperature 97.9 [degF] Delia Blandon MD [facility] Work Phone: 07-07-2016 14:58-0400 BP Diastolic 67 mm[Hg] Delia Blandon MD [facility] Work Phone: 07-07-2016 14:58-0400 BP Systolic 101 mm[Hg] Delia Blandon MD [facility] Work Phone: 07-07-2016 14:58-0400 Height 162.56 cm Delia Blandon MD [facility] Work Phone: 07-07-2016 14:58-0400 Pulse (Heart Rate) 82 /min Delia Blandon MD [facility] Work Phone: 07-07-2016 14:58-0400 Pulse Oximetry 100 % Delia Blandon MD [facility] Work Phone: 07-07-2016 14:58-0400 Weight 60.24 kg Delia Blandon MD [facility] Work Phone: Plan of Treatment Date Care Activity Detail Author Start: 11-30-2016 End: 11-30-2016 Transvaginal us, non-ob US Transvaginal [facility] Start: 11-30-2016 End: 11-30-2016 Us exam, pelvic, complete US Pelvis [facility] Start: 11-12-2016 End: 11-12-2016 Appointment Appointment [facility] Start: 11-12-2016 End: 11-12-2016 Transvaginal us, non-ob [facility]vaginal [facility] Start: 11-12-2016 End: 11-12-2016 Us exam, pelvic, complete US Pelvis [facility] Start: 07-07-2016 End: 07-08-2016 Diagnostic colonoscopy Colonoscopy [facility] Work Phone: Start: 07-07-2016 End: 07-08-2016 Follow Up Appt Other Follow Up Appt Other [facility] Work Phone: Summary Purpose Family History No Family History Records Found Advance Directives No Advanced Directives Records Found Additional Source Comments INFORMATION SOURCE (unrecogn ized section and content) FOR RECORDS PERTAINING TO PATIENTS WHO ARE OR HAVE BEEN ENROLLED IN A CHEMICAL DEPENDENCY/SUBSTANCEABUSE PROGRAM, SOME INFORMATION MAY BE OMITTED. This clinical summary was aggregated from multiple sources. Caution should be exercised in using it in the provision of clinical care. This summary normalizes information from multiple sources, and as a consequence, information in this document may materially change the coding, format and clinical context of patient data. In addition, data may be omitted in some cases. CLINICAL DECISIONS SHOULD BE BASED ON THE PRIMARY CLINICAL RECORDS. [facility]. provides no warranty or guarantee of the accuracy or completeness of information in this document.
[2023-04-05 16:11] LABS: Estradiol 290.3 pg/mL; Follicle Stimulating Hormone 3.7 mIU/mL
--- NOTE | 2023-04-06 11:30 | EMB_PTH ---
PATHOLOGY RESULTS PATIENT: THERESE NELSON LOC: [facility] U#:[id number] AGE/SX: 52/F ROOM: RE04/05/[address]: Dr. Therese Awad MD : 1970 BED: DIS: 04/05/2023 SPEC #: [id number] RECD: 04/06/23 16:18 STATUS: VINITA RELeo #: [id number] KETTY: 04/06/23 11:[address]: Therese Awad DEPT: SURGICAL PATHOLOGY RECD BY: Lisa Lan ENTERED: 04/07/23 08:48 SP TYPE: ENDOM BX/C SHEY DR: Dr. Jena Mulligan MD Tissues: Endometrium, NOS Procedures: Surgery Specimen Level IV HEADER OPERATION: Endometrial biopsy PRE-OP DIAGNOSIS: Abnormal uterine bleeding TISSUE SUBMITTED: Endometrial tissue MICROSCOPIC DIAGNOSIS Endometrium, biopsy: Weakly proliferative endometrium with focal glandular breakdown. AM:indio 04/08/2023 MICROSCOPIC DESCRIPTION Slides are reviewed. GROSS DESCRIPTION Received is one container labeled with the patient's name and not further designated. The specimen consists of multiple fragments of hemorrhagic mucoid tissue that in aggregate measure 5.0 x 3.0 x 0.2 cm. The entire specimen is submitted in two cassettes. / SJ:indio 04/07/2023 TC:5 CPT: [id number]
== END | disposition home or self-care (01) ==
PROVIDERS: PCP Family Medicine; Referring Provider Obstetrics & Gynecology; Visit Provider Obstetrics & Gynecology
DX: N93.9 Abnormal uterine and vaginal bleeding, unspecified (principal)
CPT/HCPCS: 36415; 82670; 83001; 88305

== ENCOUNTER → 2023-04-15 | Outpatient (CLI) | payer SELFPAY ==
--- NOTE | 2023-04-15 12:50 | US_ITS ---
STUDY: ULTRASOUND OF THE FEMALE PELVIS - COMPLETE REASON FOR EXAM: Female, 52 years old. menorhagia LMP: 03/31/2023 TECHNIQUE: Transabdominal and Transvaginal TECHNICAL QUALITY: Adequate. COMPARISON: None. FINDINGS: The uterus is anteverted and is in a midline position. Mat Gauger notes a septate uterus. The uterus measures 9.8 x 6.5 x 6.0 cm. Normal uterine cervix. The endometrium measures 10.7 mm in thickness, and is hyperechoic. There is no demonstrated endometrial mass. There is a 1.9 cm fibroid. I.U.D. - The patient does not have an I.U.D. The right ovary is visualized. The right ovary measures 3.9 x 2.2 x 2.5 cm. There is a complex perhaps hemorrhagic right ovarian cyst measuring 3.2 x 1.3 x 2.0 cm. There is normal arterial and normal venous vascularity. The left ovary is visualized. The left ovary measures 2.7 x 2.0 x 2.0 cm. There is no left ovarian cyst or ovarian mass. There is no visualized left adnexal mass or complex lesion. There is normal arterial and normal venous vascularity. There is no fluid in the cul-de-sac. The bladder is sonographically normal with estimated capacity of 280 mL, no significant postvoid residual noted US/Pelvic (Non ) IMPRESSION: Enlarged septate uterus containing a 1.9 cm fibroid. Additionally, the endometrium measures 10.7 mm. However, since the patient is still menstruating this is not abnormally thickened. Complex, likely likely hemorrhagic 3.2 cm right adnexal region cyst. This should be reevaluated with another pelvic ultrasound in 4-6 weeks. Review of the endometrium could also be performed at that time. Sonographically normal left ovary and bladder, no suspicious fluid in the cul-de-sac Electronically Signed: Yobany Cervantes MD at 15:21 EST ,
--- OUTSIDE RECORDS SUMMARY | 2023-04-15 14:54 | XMS RPT_ITS | CCD ---
Author Name Unknown Address [facility] [place] [address] Organization [facility] Care Team Providers Care Device Test Engineer Name Role Phone DAVID Barajas RN, Farzaneh Wynn Unavailable Unavailabl e Chastity LINO, Cynthia Obregon Unavailable Barber SPARKS, Delia Burns Unavailable Chastity LINO, Cynthia Obregon Unavailable Allergies Allergy Classification Reported Allergen(s) Allergy Type Date of Onset Reaction(s) Facility (5 sources) Latex; Translations: [LATEX] allergy to substance 07-07-2016 [facility] Work Phone: (5 sources) meperidine drug allergy 07-07-2016 [facility] Work Phone: Medications Completed/Discontinued Medications Medication Drug Class(es) Dates Sig (Normalized) Sig (Original) acetylcysteine 600 mg oral capsule (4 sources) Antidote, Mucolytic, Antidote for Acetaminophen Overdose Start: 11-12-2016 W-MUDQDL-B-CYSTEINE 600 MG CAPS ACETYLCYSTEINE [id number] Cynthia Haywood NP calcium (5 sources) Phosphate Binder, Calcium CALCIUM 250 MG CAPS CALCIUM [id number] Delia Blandon MD cholecalciferol (5 sources) Vitamin D VITAMIN D (CHOLECALCIFEROL) TABS CHOLECALCIFEROL TABS [id number] Delia Blandon MD fish oil (4 sources) FISH OIL 1000 MG CAPS OMEGA-3 FATTY ACIDS [id number] Delia Blandon MD magnesium gluconate (5 sources) MAGNESIUM 27 TAB S MAGNESIUM GLUCONATE TABS [id number] Delia Blandon MD MULTIPLE VITAMINS-MINERALS (4 sources) MULTIVITAMIN ANITRA LT TABS MULTIPLE VITAMINS-MINERALS [id number] Delia Blandon MD MULTIPLE VITAMINS-MINERALS (1 source) MULTIVITAMIN ANITRA LT TABS MULTIPLE VITAMINS-MINERALS 89816196027 Delia Blandon MD niacin 500 mg oral tablet (5 sources) Nicotinic Acid NIACIN 500 MG TA NIACIN 13846368014 Delia Blandon MD OMEGA-3 FATTY ACIDS (1 source) FISH OIL 1000 MG CAPS OMEGA-3 FATTY ACIDS 53469972585 Delia Blandon MD SELENIUM (4 sources) SELENIUM 200 MCG TABS SELENIUM [id number] Delia Blandon MD SELENIUM (1 source) SELENIUM 200 MCG TABS SELENIUM 64908776623 Delia Blandon MD vitamin B 12 (4 sources) Vitamin B12 Start: 11-12-2016 B-12 2500 MCG TABS CYANOCOBALAMIN [id number] Cynthia Haywood NP Problems Problem Classification Problem [...] Mass Index) 23.58 kg/m2 Cynthia Haywood NP [facility] 11-12-2016 12:57-0400 Body Temperature 98.1 [degF] Cynthia Haywood NP [facility] 11-12-2016 12:57-0400 BP Diastolic 64 mm[Hg] Cynthia Haywood NP [facility] 11-12-2016 12:57-0400 BP Systolic 103 mm[Hg] Cynthia Haywood NP [facility] 11-12-2016 12:57-0400 Height 162.56 cm Cynthia Haywood NP [facility] 11-12-2016 12:57-0400 Pulse (Heart Rate) 78 /min Cynthia Haywood ADJUNCT LATIN PROFESSOR [facility] 11-12-2016 12:57-0400 Respiratory Rate 16 /min Cynthia Haywood ADJUNCT LATIN PROFESSOR [facility] 11-12-2016 12:57-0400 Weight 62.32 kg Cynthia Haywood ADJUNCT LATIN PROFESSOR [facility] 07-07-2016 14:58-0400 BMI (Body Mass Index) 22.79 kg/m2 Delia Blandon MD [facility] Work Phone: 07-07-2016 14:58-0400 Body Temperature 97.9 [degF] Delia Blandon MD [facility] Work Phone: 07-07-2016 14:58-0400 BP Diastolic 67 mm[Hg] Delia Blandon MD [facility] Work Phone: 07-07-2016 14:58-0400 BP Systolic 101 mm[Hg] Delia Blandon MD [facility] Work Phone: 07-07-2016 14:58-0400 Height 162.56 cm Delia Blandon MD [facility] Work Phone: 07-07-2016 14:58-0400 Pulse (Heart Rate) 82 /min Delia Blandon MD [facility] Work Phone: 07-07-2016 14:58-0400 Pulse Oximetry 100 % Delia Blandon MD [facility] Work Phone: 07-07-2016 14:58-0400 Weight 60.24 kg Delia Blandon MD [facility] Work Phone: Plan of Treatment Date Care Activity Detail Author Start: 11-30-2016 End: 11-30-2016 Transvaginal us, non-ob US Transvaginal [facility] Start: 11-30-2016 End: 11-30-2016 Us exam, pelvic, complete US Pelvis [facility] Start: 11-12-2016 End: 11-12-2016 Appointment Appointment [facility] Start: 11-12-2016 End: 11-12-2016 Transvaginal us, non-ob US Transvaginal [facility] Start: 11-12-2016 End: 11-12-2016 Us exam, pelvic, complete US Pelvis [facility] Start: 07-07-2016 End: 07-08-2016 Diagnostic colonoscopy Colonoscopy [facility] guido Work Phone: Start: 07-07-2016 End: 07-08-2016 Follow Up Appt Other Follow Up Appt Other [facility] Work Phone: Summary Purpose Family [...] BE BASED ON THE PRIMARY CLINICAL RECORDS. [facility] [employer] [facility]. provides no warranty or guarantee of the accuracy or completeness of information in this document.
== END | disposition home or self-care (01) ==
LOC: US 12:50
PROVIDERS: PCP Family Medicine; Referring Provider Nurse Practitioner Women's Health; Visit Provider Nurse Practitioner Women's Health
DX: N93.9 Abnormal uterine and vaginal bleeding, unspecified (principal)
CPT/HCPCS: 76830; 76856

== ENCOUNTER → 2023-04-27 | Outpatient (CLI) | payer SELFPAY ==
--- OUTSIDE RECORDS SUMMARY | 2023-04-27 19:59 | XMS RPT_ITS | CCD ---
Author Name Unknown Address [facility] [place] [address] Organization [facility] Care Team Providers Care Dean Of Men Name Role Phone DAVID Barajas RN, Farzaneh Wynn Unavailable Unavailabl e Chastity LINO, Cynthia Obregon Unavailable Barber SPARKS, Delia Burns Unavailable [phone] Chastity LINO, Cynthia Obregon Unavailable [phone] Allergies Allergy Classification Reported Allergen(s) Allergy Type Date of Onset Reaction(s) Facility (5 sources) Latex; Translations: [LATEX] allergy to substance 07-07-2016 [facility] Work Phone: (5 sources) meperidine drug allergy 07-07-2016 [facility] Work Phone: Medications Completed/Discontinued Medications Medication Drug Class(es) Dates Sig (Normalized) Sig (Original) acetylcysteine 600 mg oral capsule (4 sources) Antidote, Mucolytic, Antidote for Acetaminophen Overdose Start: 11-12-2016 W-ORBGVM-Q-CYSTEINE 600 MG CAPS ACETYLCYSTEINE [id number] Cynthia Haywood NP calcium (5 sources) Phosphate Binder, Calcium CALCIUM 250 MG CAPS CALCIUM [id number] Delia Blandon MD cholecalciferol (5 sources) Vitamin D VITAMIN D (CHOLECALCIFEROL) TABS CHOLECALCIFEROL TABS [id number] Delia Blandon MD fish oil (4 sources) FISH OIL 1000 MG CAPS OMEGA-3 FATTY ACIDS 58305756008 Delia Blandon MD magnesium gluconate (5 sources) MAGNESIUM 27 TAB S MAGNESIUM GLUCONATE TABS 35993695106 Delia Blandon MD MULTIPLE VITAMINS-MINERALS (4 sources) MULTIVITAMIN ANITRA LT TABS MULTIPLE VITAMINS-MINERALS 63115025311 Delia Blandon MD MULTIPLE VITAMINS-MINERALS (1 source) MULTIVITAMIN ANITRA LT TABS MULTIPLE VITAMINS-MINERALS [id number] Delia Blandon MD niacin 500 mg oral tablet (5 sources) Nicotinic Acid NIACIN 500 MG TA NIACIN 22340207705 Delia Blandon MD OMEGA-3 FATTY ACIDS (1 source) FISH OIL 1000 MG CAPS OMEGA-3 FATTY ACIDS 80140963490 Delia Blandon MD SELENIUM (4 sources) SELENIUM 200 MCG TABS SELENIUM 79305888464 Delia Blandon MD SELENIUM (1 source) SELENIUM 200 MCG TABS SELENIUM 70743822283 Delia Blandon MD vitamin B 12 (4 sources) Vitamin B12 Start: 11-12-2016 B-12 2500 MCG TABS CYANOCOBALAMIN [id number] Cynthia Haywood NP Problems Problem Classification Problem [...] Mass Index) 23.58 kg/m2 Cynthia Haywood NP [facility] 11-12-2016 12:57-0400 Body Temperature 98.1 [degF] Cynthia Haywood NP [facility] 11-12-2016 12:57-0400 BP Diastolic 64 mm[Hg] Cynthia Haywood NP [facility] 11-12-2016 12:57-0400 BP Systolic 103 mm[Hg] Cynthia Haywood NP [facility] 11-12-2016 12:57-0400 Height 162.56 cm Cynthia Haywood NP [facility] 11-12-2016 12:57-0400 Pulse (Heart Rate) 78 /min Cynthia Haywood ORTHODONTIC TECHNICIAN [facility] 11-12-2016 12:57-0400 Respiratory Rate 16 /min Cynthia Haywood ORTHODONTIC TECHNICIAN [facility] 11-12-2016 12:57-0400 Weight 62.32 kg Cynthia Haywood ORTHODONTIC TECHNICIAN [facility] 07-07-2016 14:58-0400 BMI (Body Mass Index) 22.79 kg/m2 Delia Blandon MD [facility] Work Phone: 07-07-2016 14:58-0400 Body Temperature 97.9 [degF] Delia Blandon MD [facility] Work Phone: 07-07-2016 14:58-0400 BP Diastolic 67 mm[Hg] Delia Blandon MD [facility] Work Phone: 07-07-2016 14:58-0400 BP Systolic 101 mm[Hg] Delia Blandon MD [facility] Work Phone: 07-07-2016 14:58-0400 Height 162.56 cm Delia Blandon MD [facility] Work Phone: 07-07-2016 14:58-0400 Pulse (Heart Rate) 82 /min Delia Blandon MD [facility] Work Phone: 07-07-2016 14:58-0400 Pulse Oximetry 100 % Delia Blandon MD [facility] Work Phone: 07-07-2016 14:58-0400 Weight 60.24 kg Delia Blandon MD [facility] Work Phone: Plan of Treatment Date Care Activity Detail Author Start: 11-30-2016 End: 11-30-2016 Transvaginal us, non-ob US Transvaginal [facility] Start: 11-30-2016 End: 11-30-2016 Us exam, pelvic, complete US Pelvis [facility] Start: 11-12-2016 End: 11-12-2016 Appointment Appointment [facility] Start: 11-12-2016 End: 11-12-2016 Transvaginal us, non-ob US Transvaginal [facility] Start: 11-12-2016 End: 11-12-2016 Us exam, pelvic, complete US Pelvis [facility] Start: 07-07-2016 End: 07-08-2016 Diagnostic colonoscopy Colonoscopy [facility]ada guido Work Phone: Start: 07-07-2016 End: 07-08-2016 Follow Up Appt Other Follow Up Appt Other [facility] Work Phone: Summary Purpose [...] BE BASED ON THE PRIMARY CLINICAL RECORDS. [facility] [employer] [facility]. provides no warranty or guarantee of the accuracy or completeness of information in this document.
[2023-05-03 12:08] LABS: Alternaria alternata <0.10 kU/L (Class 0); Aspergillus fumigatus <0.10 kU/L (Class 0); Bahia Grass <0.10 kU/L (Class 0); Bermuda Grass <0.10 kU/L (Class 0); Bluegrass, Kentucky <0.10 kU/L (Class 0); Cat Hair/Dander, Standard <0.10 kU/L (Class 0); Cedar, Mountain <0.10 kU/L (Class 0); Cladosporium herbarum <0.10 kU/L (Class 0); Cockroach, American <0.10 kU/L (Class 0); D farinae Mite <0.10 kU/L (Class 0); D pteronyssinus <0.10 kU/L (Class 0); Dog Epithelia <0.10 kU/L (Class 0); Elm, American White <0.10 kU/L (Class 0); Hazelnut Tree <0.10 kU/L (Class 0); Hickory, White <0.10 kU/L (Class 0); Johnson Grass <0.10 kU/L (Class 0); Maple/Box Elder <0.10 kU/L (Class 0); Mucor racemosus <0.10 kU/L (Class 0); Mugwort <0.10 kU/L (Class 0); Mulberry, White <0.10 kU/L (Class 0); Nettle <0.10 kU/L (Class 0); Oak, White <0.10 kU/L (Class 0); Penicillium chrysogen <0.10 kU/L (Class 0); Pigweed, Rough <0.10 kU/L (Class 0); Plantain, English <0.10 kU/L (Class 0); Ragweed, Short/Common <0.10 kU/L (Class 0); Sheep Sorrel(Dock) <0.10 kU/L (Class 0); Stemphylium herbarum <0.10 kU/L (Class 0); Sweet Gum <0.10 kU/L (Class 0); Sycamore, American <0.10 kU/L (Class 0)
== END | disposition home or self-care (01) ==
LOC: MTLAB 15:55
PROVIDERS: PCP Family Medicine; Referring Provider Family Medicine; Visit Provider Family Medicine
DX: R05.9 Cough, unspecified (principal)
CPT/HCPCS: 36415; 86003

== ENCOUNTER 2023-05-06 14:58 | Outpatient (RCR) | payer SELFPAY ==
--- NOTE | 2023-05-06 16:10 | HP.PTEVAL ---
Patient's Visit Information Visit Information Visit Information: GRUPO NELSON is a 52 year old F referred to Physical Therapy by Juan M Shaffer MD with a diagnosis of Neck pain. Date of Evaluation: 05/06/23 Physical Therapist: Jose R Samaniego Visit Plan Frequency: 1-2x /Week Duration: 6 Weeks Plan: If pt. returns, continue with neck/scapular strengthening, elbow/wrist stretches, and elbow/wrist strengthening. Use manual therapy and modalities as needed for pain control. Subjective Subjective: Pt. is a 52 y.o. female who has been having intermittent arm pain mostly from her elbows and down to her hands which has been going on for over a year. Pt. also will get occasional neck pain. She has not had any recent diagnostic testing. Pt. denies any chest pain. Pt. denies any numbness or tingling. She has difficulty with picking things up, holding a full glass, gripping things, occasionally lifting things overhead, pushing/pulling, housework, and yard work. Pt. is a homemaker. Her goal with physical therapy is to get rid of the pain. Pt. denies any pain currently, at worst 7/10 and describes the pain as achy. She will occasionally take Advil for pain. Her PMH includes right THR, right hip ORIF, D&C, right knee arthroscopic surgery, skin cancer, skull surgery, and tonsillectomy. Pt. lives with her . Her hobbies include gardening and clean. Objective Objective: Posture- Mild rounded shoulders in sitting Palpation- No tenderness to palpation Neck AROM- WNL for all motions Shoulder AROM- WNL for all motions bilaterally Elbow AROM- WNL for all motions bilaterally Wrist AROM- WNL for all motions bilaterally Left UE strength grossly 5/5 for all motions Right UE strength grossly 5/5 for all motions Sensation- WNL bilaterally Special tests- Cervical distraction [-], Spurling's [-], Hawkin's Dashawn [-], Painful arc [-], Infraspinatus test [-], Drop arm [-], Cozen's [-], McMauldy's test [-] Orchestra Director strength on right 69 lbs, 68 lbs, 68 lbs Orchestra Director strength on left 65 lbs, 67 lbs, 65 lbs Balance/Special Test Scores Oswestry Neck Score: 4 Goals Goal 1:: Pt. will be independent with home exercise program. Goal Time Frame: 4-6 Weeks Goal 2:: Pt. will be able to hold a full glass with no pain. Goal Time Frame: 4-6 Weeks Goal 3:: Pt. will be able to residential director things with no pain. Goal Time Frame: 4-6 Weeks Goal 4:: Pt. will be able to complete yard work with pain < 3/10. Goal Time Frame: 4-6 Weeks Goal 5:: Pt. will improve Neck Oswestry <5% disability in order to improve ADL's. Goal Time Frame: 4-6 Weeks Rehabilitation Potential Physical Therapy Diagnosis: Pain and decreased posture Rehabilitation Potential: Fair Anticipated Interventions Patient/Client Instruction: Educate patient on: Condition, Plan of Care and Benefits of Fitness Program For the Purpose of:: To decrease pain, To improve ability to perform ADL's, To improve performance and independence with ADL's, To assume or resume ADL's and To improve tolerance to ADL's Therapeutic Exercise to Include: Strength training, Postural training, Flexibilty training, Active ROM and Scapular Strength/Stabilization Comment: Continue with neck/scapular strengthening, elbow/wrist stretching, and elbow/wrist strengthening. For the Purpose of:: To decrease pain, To improve ability to perform ADL's, To improve performance and independence with ADL's, To assume or resume ADL's and To improve tolerance to ADL's Functional Training to Include: ADL Training For the Purpose of:: To decrease pain, To improve ability to perform ADL's, To improve performance and independence with ADL's, To improve ability of physical actions for home/community/work/leisure, To assume or resume ADL's and To improve tolerance to ADL's Manual Therapy Techniques to Include: Mobilization and Soft tissue mobilization For the Purpose of:: To decrease pain, To improve ability to perform ADL's, To improve performance and independence with ADL's, To assume or resume ADL's and To improve tolerance to ADL's Iontophoresis (with Dexamethozone, with Acetic acid): Yes TENS: Yes IF ES: Yes Cryotherapy (ice pack, ice massage): Yes For the Purpose of:: To decrease pain, To improve ability to perform ADL's, To improve performance and independence with ADL's, To assume or resume ADL's and To improve tolerance to ADL's Text: Thank you for the opportunity to evaluate your patient. For Medicare and Medicare HMO plans, please review the plan of care and approve it. It will need to be FAXED BACK to us at [phone] for Medicare purposes. For Medicare only, by signing this I certify the plan of care. Please let me know if there are questions or concerns regarding this plan of care. Physician Signature: Date:
--- NOTE | 2023-09-06 09:23 | HP.PT.NRP ---
Patient Information Patient Information: GRUPO NELSON was seen in my office for initial evaluation on 05/06/23. The following Plan of Care was established for this patient: POC Established Initial Frequency: 1-2x /Week Initial Duration: 6 Weeks Anticipated Interventions Patient/Client Instruction: Educate patient on: Condition, Plan of Care and Benefits of Fitness Program For the Purpose of:: To decrease pain, To improve ability to perform ADL's, To improve performance and independence with ADL's, To assume or resume ADL's and To improve tolerance to ADL's Therapeutic Exercise to Include: Strength training, Postural training, Flexibilty training, Active ROM and Scapular Strength/Stabilization For the Purpose of:: To decrease pain, To improve ability to perform ADL's, To improve performance and independence with ADL's, To assume or resume ADL's and To improve tolerance to ADL's Functional Training to Include: ADL Training For the Purpose of:: To decrease pain, To improve ability to perform ADL's, To improve performance and independence with ADL's, To improve ability of physical actions for home/community/work/leisure, To assume or resume ADL's and To improve tolerance to ADL's Manual Therapy Techniques to Include: Mobilization and Soft tissue mobilization For the Purpose of:: To decrease pain, To improve ability to perform ADL's, To improve performance and independence with ADL's, To assume or resume ADL's and To improve tolerance to ADL's Iontophoresis (with Dexamethozone, with Acetic acid): Yes TENS: Yes IF ES: Yes Cryotherapy (ice pack, ice massage): Yes For the Purpose of:: To decrease pain, To improve ability to perform ADL's, To improve performance and independence with ADL's, To assume or resume ADL's and To improve tolerance to ADL's Last Seen Last Seen: This patient was last seen in our office 05/06/23. Pertinent comments regarding their Physical therapy will appear below: Pt seen one visit of POC and did not return for any further visits. At this point, it has been over 3 months and i will discontinue from my care. At this point I will be discontinuing this patient from physical therapy. I would be happy to see this patient again in the future if found appropriate by the physician. Thank you! Sourav Gallardo, DPT, OCS, CSCS Balance/Gait/Functional tests Balance/Special Test Scores Oswestry Neck Score: 4
== END 2023-05-06 19:00 | disposition home or self-care (01) ==
LOC: PT 14:58
PROVIDERS: PCP Family Medicine; Referring Provider Family Medicine; Visit Provider Family Medicine
DX: M54.2 Cervicalgia (principal)
CPT/HCPCS: 97110; 97162

== ENCOUNTER → 2023-06-02 | Outpatient (CLI) | payer SELFPAY ==
--- NOTE | 2023-06-02 12:57 | US_ITS ---
STUDY: ULTRASOUND OF THE FEMALE PELVIS - COMPLETE REASON FOR EXAM: Female, 52 years old. Ovarian cyst LMP: April 17, 2023. TECHNIQUE: Transabdominal and Transvaginal TECHNICAL QUALITY: Adequate. COMPARISON: Comparison is made with prior study dated April 15, 2023. FINDINGS: The uterus is anteverted and is in a midline position. The uterus measures 9.8 cm x 7 cm x 5.6 cm. There is a Nabothian cyst of the cervix. The endometrium is thickened and measures 12.7 mm in thickness, and is hyperechoic. Tiny cystic changes are seen in the endometrium. There is no demonstrated endometrial mass. 2 adjacent fibroids are seen in the right side of the body of the uterus. The larger fibroid measures 2.3 cm x 2.3 cm 2.3 cm. I.U.D. - The patient does not have an I.U.D. The right ovary is visualized. The right ovary measures 3.8 cm x 3.8 cm x 3.9 cm. There is a 2.7 cm x 2.8 x 2.6 cm right ovarian cyst. There is no visualized right adnexal mass or complex lesion. There is normal arterial and normal venous vascularity. The left ovary is visualized. The left ovary measures 2.1 cm x 2.7 cm x 1.4 cm. Small follicles are seen. There is no visualized left adnexal mass or complex lesion. There is normal arterial and normal venous vascularity. There is no fluid in the cul-de-sac. The pre void volume of the bladder was 400 ml. US/Pelvic (Non ) IMPRESSION: Fibroid uterus. Thickening of the endometrium with cystic changes. Right ovarian cyst. Electronically Signed: Saman Peters MD at 15:47 EDT ,
== END | disposition home or self-care (01) ==
LOC: US 12:56
PROVIDERS: PCP Family Medicine; Referring Provider Obstetrics & Gynecology; Visit Provider Obstetrics & Gynecology
DX: N93.9 Abnormal uterine and vaginal bleeding, unspecified (principal); N83.209 Unspecified ovarian cyst, unspecified side
CPT/HCPCS: 76830; 76856

== ENCOUNTER → 2024-08-11 | Outpatient (CLI) | payer SELFPAY ==
--- NOTE | 2024-08-11 11:00 | BI_ITS ---
EXAM: SCRN MAMM (CAD)W/JS BILAT DATE: 08/11/2024 CLINICAL HISTORY: F, Age 53 y/o , SCREEN FOR BREAST CANCER No family history. History of prior left cyst aspiration. BREAST CANCER RISK ASSESSMENT: Not assessed. TECHNIQUE: Bilateral screening digital breast tomosynthesis with 2D and 3D images. Computer aided detection. COMPARISON: Prior exam(s) dated September 23, 2022.. FINDINGS: TISSUE DENSITY: The breast tissue is heterogenously dense, which may obscure small masses. Bilateral Breast Mammographic Findings: No significant masses, calcifications or other abnormalities are identified. No suspicious masses, areas of developing architectural distortion, or suspicious calcifications. There has been no significant interval change. BI/SCRN MAMM (CAD)W/JS BILAT IMPRESSION: OVERALL FINAL ASSESSMENT: BIRADS 1 NEGATIVE RECOMMENDATION: Routine annual follow-up in 1 Year A letter with findings and recommendations will be mailed to the patient. Reading Location: [place] [id number]
== END | disposition home or self-care (01) ==
LOC: OPBI 10:59
PROVIDERS: PCP Family Medicine; Referring Provider Obstetrics & Gynecology; Visit Provider Obstetrics & Gynecology
DX: Z12.31 Encounter for screening mammogram for malignant neoplasm of breast (principal)
CPT/HCPCS: 77063; 77067

== ENCOUNTER → 2024-09-26 | Outpatient (CLI) | payer SELFPAY ==
--- NOTE | 2024-09-26 14:39 | US_ITS ---
PROCEDURE: PELVIC W/ TRANSVAGINAL REASON FOR EXAM: PELVIC PRESSURE; AUB TECHNIQUE: PELVIC W/ TRANSVAGINAL COMPARISON: None FINDINGS: LMP: May 2024 Measurements: Uterus: 8.8 cm x 5.9 cm x 4.4 cm with a volume of 118.84 mL Endometrial Thickness: 2.4 mm. It is trilaminar in appearance. Right Ovary: 3.1 cm x 2.6 cm x 1.4 cm with a volume of 5.99 mL. Left Ovary: 1.9 cm x 1.4 cm x 1.3 cm with a volume of 1.77 mL. TRANSABDOMINAL: Uterus: Fibroid uterus. 3 small fibroids are seen. The largest measures 1.3 cm 1.3 cm 1 cm. Endometrium: Unremarkable. Right ovary: Normal size and echotexture. Left ovary: Normal size and echotexture. Other: No large pelvic mass identified. Transvaginal sonography was performed to better visualize the endometrium. TRANSVAGINAL: Uterus: Fibroid uterus. Endometrium: Normal echotexture. Right ovary: Normal size and echotexture. Left ovary: Normal size and echotexture. Other adnexal findings: None. Cul-de-sac: No free intraperitoneal fluid identified. Tenderness: No tenderness US/Pelvic w/ Transvaginal IMPRESSION: Fibroid uterus. Reading Location: [place] [address]
--- NOTE | 2024-09-26 14:39 | US_ITS ---
PROCEDURE: PELVIC W/ TRANSVAGINAL REASON FOR EXAM: PELVIC PRESSURE; AUB TECHNIQUE: PELVIC W/ TRANSVAGINAL COMPARISON: None FINDINGS: LMP: May 2024 Measurements: Uterus: 8.8 cm x 5.9 cm x 4.4 cm with a volume of 118.84 mL Endometrial Thickness: 2.4 mm. It is trilaminar in appearance. Right Ovary: 3.1 cm x 2.6 cm x 1.4 cm with a volume of 5.99 mL. Left Ovary: 1.9 cm x 1.4 cm x 1.3 cm with a volume of 1.77 mL. TRANSABDOMINAL: Uterus: Fibroid uterus. 3 small fibroids are seen. The largest measures 1.3 cm 1.3 cm 1 cm. Endometrium: Unremarkable. Right ovary: Normal size and echotexture. Left ovary: Normal size and echotexture. Other: No large pelvic mass identified. Transvaginal sonography was performed to better visualize the endometrium. TRANSVAGINAL: Uterus: Fibroid uterus. Endometrium: Normal echotexture. Right ovary: Normal size and echotexture. Left ovary: Normal size and echotexture. Other adnexal findings: None. Cul-de-sac: No free intraperitoneal fluid identified. Tenderness: No tenderness US/Pelvic w/ Transvaginal IMPRESSION: Fibroid uterus. Reading Location: [place] [address]
== END | disposition home or self-care (01) ==
LOC: US 14:37
PROVIDERS: PCP Family Medicine; Referring Provider Nurse Practitioner Family; Visit Provider Nurse Practitioner Family
DX: R10.2 Pelvic and perineal pain (principal); N93.9 Abnormal uterine and vaginal bleeding, unspecified
CPT/HCPCS: 76830; 76856

== ENCOUNTER → 2024-09-28 | Outpatient (CLI) | payer SELFPAY ==
[2024-09-28 11:29] LABS: Follicle Stimulating Hormone 99.6 mIU/mL
== END | disposition home or self-care (01) ==
LOC: MTLAB 07:25
PROVIDERS: Nurse Practitioner Family; PCP Family Medicine; Referring Provider Family Medicine; Visit Provider Family Medicine
DX: R10.2 Pelvic and perineal pain (principal); N93.9 Abnormal uterine and vaginal bleeding, unspecified
CPT/HCPCS: 82670; 83001